=== PATIENT | male | born 1960 | race Caucasian/White ===

== ENCOUNTER → 2018-02-20 | Day surgery (SDC) | payer MEDICAID ==
[~2018-02-20] MED LIST: AMLO10 PO; BACITRACIN IM FOR SOLN 50,000 UNIT VIAL ONE; BUPIVACAINE HCL PF 0.75% 30 ML VIAL ONE; BUPIVACAINE/EPINEPHRINE 0.25% 50 ML VIAL ONE; GABA300C3 PO; GEMF600T PO; GLUCTES27 XX; HCTZ25 PO; LACTATED RINGER'S 1000 ML INJ 1,000 ML ONE; LEVEMIR SQ; LEVO.1 PO; LIDOCAINE 2%/EPINEPHrine PF 1:200,000 20ML SDV ONE; LISI-366 PO; MIDAZOLAM HCL 5 MG/ML VIAL (1 ML) ONE; ONDANSETRON HCL 4 MG/2 ML VIAL IV PUSH ONE; PROC90TA OR; PROPOFOL 200 MG/20 ML AMP IV ONE; SODIUM CHLORIDE 0.9% INJ 10 ML ONE; ceFAZolin INJ 1,000 MG VIAL ONE
--- NOTE | 2018-02-20 13:20 | TN ---
cc: Miguel Frias MD DATE OF SURGERY: 02/20/2018 PREOPERATIVE DIAGNOSES: 1. Left shoulder rotator cuff tear. 2. Left shoulder impingement from the subacromial space and the subclavicular space and left shoulder acromioclavicular degenerative arthritis. OTHER PRESUMED DIAGNOSES: Early adhesive capsulitis and biceps subluxation. POSTOPERATIVE DIAGNOSES: 1. Right shoulder high grade impingement with near full thickness supraspinatus cuff tear. 2. Acromioclavicular joint arthritis with subclavicular impingement. 3. No evidence of any severe biceps tenosynovitis or instability and no adhesive capsulitis. PROCEDURE PERFORMED: 1. Left shoulder open rotator cuff repair including acromioplasty. 2. Left shoulder open partial distal clavicle excision greater than 10 mm. SURGEON: MD Rodriguez ANESTHESIA: General via laryngeal mask augmented by local infiltration. ESTIMATED BLOOD LOSS: Minimal. FLUID REPLACEMENT: 800 mL of crystalloid. SPECIMENS SENT: None, but a distal clavicle and acromion as well as bursal tissue were all excised and discarded. IMPLANTS: No implants were utilized. The repair was done primarily with FiberWire as a [id number] repair. COMPLICATIONS: No intraoperative complications. COUNTS: All counts were correct. INDICATIONS FOR PROCEDURE: Mr. Younger is a 57-year-old gentleman who has had problems with persistent severe left shoulder pain, weakness and stiffness ever since having a fall down some stairwell previously. He has been treated conservatively with the passage of time. Intermittent anti-inflammatory use, injections and home exercise program and has not been able to recover his range of motion or have resolution of his pain and weakness. An MRI of the shoulder was concerning for near full thickness cuff tear seen of the supraspinatus with extension into the infraspinatus and subscapularis as well as what appeared to be a biceps tendon subluxation and tenosynovitis. As a result of his failure of conservative treatment, he has been taken to the operating room for surgical intervention. He was aware of the risks, benefits, potential complications and limitations of the procedure and full written informed consent was obtained. DESCRIPTION OF PROCEDURE: After the patient was appropriately identified in the holding area and correctly marked his left shoulder and I initialed did as well, he was then given an interscalene block by Anesthesia in the holding area under sedation with ultrasound. At this time, he was then given 1 gram of intravenous Ancef as prophylactic antibiotic and then he was taken to the Operating Suite, where he was placed under general laryngeal mask anesthetic by Dr. Hawkins. He then was placed into the beach chair position with all the bony prominences well padded and was prepped with alcohol and Hibiclens and draped in the normal standard fashion with the left arm free. The surgical team confirmed with a short timeout that it was an appropriate location and procedure and the case was now begun. At this time, his left shoulder incision was made over the acromioclavicular joint in somewhat of an obliquely oriented incision of 5 cm. The subcutaneous tissue was divided and hemostasis was achieved with electrocautery. The AC joint was then subperiosteally dissected both medially and laterally and the joint was significantly arthritic with osteophytes that were appreciated projecting in all directions. As I began to subperiosteally dissect the acromion, I extended the release into the first centimeter of deltoid and divided in line with its fibers and was able to clearly expose the subacromial space. There I noted high grade subacromial impingement from the undersurface of the acromion, which was curved and there was also a significant impingement at the subclavicular level due to osteophyte formation here as well. I went ahead and performed a generous acromioplasty, taking care to protect the rotator cuff with an oscillating saw and this substantially decompressed the subacromial space and then I further carried out the dissection to excise a little over 1 cm of distal clavicle, which thoroughly decompressed the subclavicular space as well. At this time, I went ahead and debrided the subacromial bursal tissue and was now able to explore the cuff well. I was able to palpate what felt like a very near full-thickness tear of the supraspinatus with extension both anteriorly and posteriorly, but I did not see disruption of the most superficial bursal-sided fibers. The MRI showed something somewhat similar to this, although multiple images did show what appeared to be a full-thickness tear. I went ahead and used a second scalpel blade to release a few of the more superficial remaining fibers and, as soon as I encountered the outer surface of the cuff, the cuff actually opened on its own for approximately 1.5 cm in an anterior to posterior direction. There was a fair amount of tendon stump off of the tuberosity and the tendon was in quite good condition on the far side and as a result, I felt that he would be an excellent candidate for a [id number] repair, now that he was well decompressed. I went ahead and further opened the area of the tear to explore the glenohumeral joint a bit better and there was no evidence of any biceps tendon subluxation despite the MRI showing some concerns over this and there was no evidence of any high grade biceps tenosynovitis. There may have been some fluid surrounding it, but it was difficult to distinguish glenohumeral effusion from anything such as tenosynovitis. The undersurface and outer surfaces of the subscapularis were intact as was the infraspinatus. There might have been extension into the more proximal 3-4 mm, but certainly not across the entire length of the musculotendinous junction. I went ahead and thoroughly irrigated out the shoulder joint and did not see any evidence of significant debris. I then visually inspected the labrum circumferentially from almost 6 a.m. to 9 p.m. getting very good visualization through this area and did not see significant tear. The cartilage in the glenohumeral joint showed some yellowish discoloration, but did not show any evidence of full-thickness cartilage loss. No loose bodies were encountered as well. Based on the good quality of the tissue on the tendon stump side, I went ahead and used a #2 FiberWire suture and did several horizontal mattress sutures with the knots buried deep to get an excellent repair and reapproximation of the ruptured supraspinatus. I carried the repair into the subscapularis anteriorly and into the infraspinatus posteriorly. There was a total of 3 individual large zmcbtg-ma-axifly repair sutures that were placed with varying degrees of complexity in terms of whether or not it was a simple horizontal mattress or if it was some type of modified Spicer-Polo horizontal mattress. Regardless, I got good purchase and good control over the subscapularis tissues and control of the cuff tissues themselves. Following the repair the rotator cuff moved perfectly normal with range of motion of the humeral head. Please note that just prior to cuff closure, I pressurized it with irrigation and there was no evidence of any leak elsewhere. I did not see any thinned areas as well. Once this was completed and fully tied, the sutures were cut, the shoulder was taken through range of motion once again and found to be quite stable. I went ahead and woke him from anesthesia and now allowed the deep deltoid tissues and the periosteal tissue to reapproximate. I was able to close it with interrupted #2 Ti-Cron sutures and then some of the deltoid tissue was closed with 2-0 Vicryl sutures. A good solid deltoid repair and periosteal repair was obtained with us. At this point, the subcutaneous tissue was then meticulously closed aligning his tattoos as carefully as possible at the margins. I was quite satisfied with the reapproximation of the ink lines. At this time, the wound was then dressed with Xeroform, 4 x 4's, ABD and foam tape. Please note that an additional 20 mL of 0.25% Marcaine with epinephrine were then infiltrated subcutaneously as well as in the subacromial space for postop pain relief. He was then transported to the recovery room in stable condition. Appropriate postoperative orders have been written. Miguel Frias MD Electronically Signed MD JANETTE Benítez/SB , 12:33 PM , 01:19 PM [email or web address]
== END | disposition home or self-care (01) ==
LOC: ESDC 08:10
PROVIDERS: ATTEND Orthopaedic Surgery Sports Medicine
DX: M75.122 Complete rotator cuff tear or rupture of left shoulder, not specified as traumatic (principal); M19.012 Primary osteoarthritis, left shoulder; M75.42 Impingement syndrome of left shoulder
CPT/HCPCS: 00450; 01630; 01991; 23120; 23420; 64417; 76942; J0690; J2250; J2405; J3010; J7120